=== PATIENT | male | born 1995 | race Asian ===

== ENCOUNTER 2018-02-26 09:39 | Emergency (ER) | payer OTHER ==
[~2018-02-26] VITALS: Ht 188 cm; Wt 90.9 kg
[2018-02-26 09:42] VITALS: BP 125/49
[2018-02-26] MEDS ORDERED: GuaiFENesin/D-METHORPHAN [SUGAR-FREE] 200-20MG/10 ML SYRUP UDCUP PO ONE (10:15)
== END 2018-02-26 10:36 | disposition home or self-care (01) ==
LOC: EMS 09:41
DX: J40 Bronchitis, not specified as acute or chronic (principal); J45.909 Unspecified asthma, uncomplicated; J02.9 Acute pharyngitis, unspecified; F17.210 Nicotine dependence, cigarettes, uncomplicated
CPT/HCPCS: 99283